=== PATIENT | male | born 1970 | race Caucasian/White ===

== ENCOUNTER 2018-01-15 14:56 | Emergency (ER) | payer MEDICAID, OTHER | END 2018-01-15 17:18 | disposition home or self-care (01) | LOC: FTE 14:56 | DX: S10.91XA Abrasion of unspecified part of neck, initial encounter (principal); W26.8XXA Contact with other sharp object(s), not elsewhere classified, initial encounter; Y92.9 Unspecified place or not applicable | CPT/HCPCS: 99283; Z7502 ==